=== PATIENT | female | born 1965 | race Caucasian/White ===

== ENCOUNTER 2020-02-27 08:58 | Day surgery (SDC) | payer OTHER, SELFPAY ==
[~2020-02-27] VITALS: Ht 162.6 cm; Wt 77.1 kg
[2020-02-27] MEDS ORDERED: MIDAZOLAM 5 MG/5 ML VIAL ONE (11:23)
[2020-02-27] MEDS ORDERED: fentaNYL citrate 0.05 MG/ML VIAL ONE (11:23)
[2020-02-27] MEDS ORDERED: LIDOCAINE 2% 100 MG/5 ML UJET TP ONE (11:24)
[2020-02-27] MEDS ORDERED: MIDAZOLAM 2 MG/2 ML VIAL IVP ONE (12:05)
[2020-02-27] MEDS ORDERED: fentaNYL citrate 0.05 MG/ML VIAL IVP ONE (12:05)
== END 2020-02-27 12:50 | disposition home or self-care (01) ==
LOC: MDS 08:58 → MMU 08:58 → MDS 12:50
PROVIDERS: ATTEND Internal Medicine Gastroenterology
DX: Z12.11 Encounter for screening for malignant neoplasm of colon (principal); R10.13 Epigastric pain; E66.9 Obesity, unspecified; Z68.30 Body mass index [BMI] 30.0-30.9, adult; Z20.828 Contact with and (suspected) exposure to other viral communicable diseases
CPT/HCPCS: 43235; 45378; J2250; J3010; U0003